=== PATIENT | male | born 1945 | race African-American/Black ===

== ENCOUNTER 2019-03-11 09:26 | Emergency (ER) | payer MEDICARE, MEDICAID ==
[~2019-03-11] VITALS: Ht 188 cm; Wt 116.0 kg
[2019-03-11] MEDS ORDERED: MORPHINE SULFATE 4 MG/ML CPJ (NOT FOR IM USE) IV STA (10:20)
[2019-03-11] MEDS ORDERED: ONDANSETRON HCL 4MG/2ML INJ IV STA (10:20)
[2019-03-11 10:37] LABS: BASOPHILS % 0.6 % (0.0-2.0); EOSINOPHILS % 2.4 % (0.0-5.0); HEMATOCRIT. 30.3 % (42.0-52.0); HEMOGLOBIN. 10.2 g/dL (14.0-18.0); LYMPHOCYTES % 20.4 % (20.0-50.0); MEAN CORPUSCULAR HEMOGLOBIN 29.9 pg (28.0-32.0); MEAN CORPUSCULAR VOLUME 88.6 fL (80.0-94.0); MEAN PLATELET VOLUME 6.5 fl (7.4-10.4); MONOCYTES % 8.4 % (2.0-8.0); NEUTROPHILS % 68.2 % (40.0-76.0); PLATELET 438 x1000/uL (130-400); RED BLOOD CELL COUNT 3.41 mill/uL (4.7-6.1); RED CELL DISTRIBUTION WIDTH 14.1 % (11.6-14.6)
[2019-03-11 10:46] LABS: PROTHROMBIN TIME 10.4 sec (9.6-11.0)
[2019-03-11] MEDS ORDERED: DIATR MEGLU/DIATRIZOATE SOLN 30ML ONE (10:49)
[2019-03-11 10:54] LABS: CHLORIDE 102 mEq/L (98-107)
[2019-03-11] MEDS ORDERED: MORPHINE SULFATE 4 MG/ML CPJ (NOT FOR IM USE) IV ONE (13:00)
[2019-03-11 13:45] VITALS: BP 130/72
[2019-03-11] MEDS ORDERED: IOHEXOL-300 100 ML BOTTLE ONE (15:25)
== END 2019-03-11 14:30 | disposition home or self-care (01) ==
LOC: ER 09:26
DX: K42.9 Umbilical hernia without obstruction or gangrene (principal); I10 Essential (primary) hypertension; Z96.659 Presence of unspecified artificial knee joint
CPT/HCPCS: 36415; 74177; 80053; 85025; 85610; 96374; 96375; 99284; J2270; J2405; Q9963; Q9967

== ENCOUNTER 2019-03-30 11:47 | Emergency (ER) | payer MEDICARE, MEDICAID ==
[~2019-03-30] VITALS: Ht 188 cm; Wt 116.0 kg
[2019-03-30] MEDS ORDERED: ACETAMINOPHEN 500MG TABLET PO ONE (14:15)
[2019-03-30] MEDS ORDERED: KETOROLAC 15MG/ML VIAL IV ONE (14:15)
[2019-03-30 14:42] LABS: BASOPHILS % 1.3 % (0.0-2.0); EOSINOPHILS % 4.4 % (0.0-5.0); HEMATOCRIT. 32.4 % (42.0-52.0); HEMOGLOBIN. 10.7 g/dL (14.0-18.0); LYMPHOCYTES % 31.6 % (20.0-50.0); MEAN CORPUSCULAR HEMOGLOBIN 29.4 pg (28.0-32.0); MEAN CORPUSCULAR VOLUME 89.3 fL (80.0-94.0); MONOCYTES % 6.6 % (2.0-8.0); NEUTROPHILS % 56.1 % (40.0-76.0); PLATELET 335 x1000/uL (130-400); RED BLOOD CELL COUNT 3.63 mill/uL (4.7-6.1); RED CELL DISTRIBUTION WIDTH 15.2 % (11.6-14.6)
[2019-03-30 14:44] LABS: CHLORIDE 105 mEq/L (98-107)
[2019-03-30 14:45] LABS: PROTHROMBIN TIME 10.7 sec (9.6-11.0)
[2019-03-30] MEDS ORDERED: IOHEXOL-300 100 ML BOTTLE ONE (16:35)
[2019-03-30 16:52] VITALS: BP 123/70
== END 2019-03-30 16:57 | disposition home or self-care (01) ==
LOC: ER 12:07
DX: R10.32 Left lower quadrant pain (principal); G89.29 Other chronic pain; K57.90 Diverticulosis of intestine, part unspecified, without perforation or abscess without bleeding; N40.0 Benign prostatic hyperplasia without lower urinary tract symptoms; D64.9 Anemia, unspecified; I10 Essential (primary) hypertension; Z98.890 Other specified postprocedural states
CPT/HCPCS: 36415; 74177; 80053; 83690; 85025; 85610; 96374; 99284; J1885; Q9967